=== PATIENT | male | born 1930 | race Caucasian/White ===

== ENCOUNTER → 2016-08-15 | Outpatient (CLI) | payer OTHER, MEDICAID ==
[2015-12-07 05:13] VITALS: BP 145/90
--- NOTE | 2016-08-15 18:22 | RAD ---
HISTORY: Cough Study: Single view of the chest Comparison: December 07, 2015 Findings: The patient is slightly rotated. The cardiac silhouette is unremarkable. A small left pleural effu ana is suspected. The right costophrenic angle is not entirely included. The aorta is partially calcified and tortuous. IMPRESSION: 1. Cardiomegaly with a suspected small left pleural effusion. Reported By:
== END ==
LOC: RAD 16:26
PROVIDERS: ATTEND Internal Medicine
DX: R05 Cough (principal); R07.89 Other chest pain
CPT/HCPCS: 71010

== ENCOUNTER → 2017-02-16 | Outpatient (CLI) | payer OTHER, MEDICAID ==
[2015-12-07 05:13] VITALS: BP 145/90
--- NOTE | 2017-02-16 10:17 | RAD ---
Examination: Chest, PA and lateral views History: Hypoxia, cough, congestion and prostate CA Comparison reference: 08/15/2016 Findings: Continued normal heart size with tortuous aorta and lungs and pleural space is free of acti ve process. Pulmonary volumes are slightly reduced by incomplete inspiration. There is no consolidati on, pneumothorax or pleural fluid. Impression: No active chest disease demonstrated. Reported By:
== END ==
LOC: RAD 09:36
PROVIDERS: ATTEND Internal Medicine
DX: R09.02 Hypoxemia (principal); R05 Cough; R09.89 Other specified symptoms and signs involving the circulatory and respiratory systems
CPT/HCPCS: 71020

== ENCOUNTER → 2017-03-26 | Outpatient (CLI) | payer OTHER, MEDICAID ==
[2015-12-07 05:13] VITALS: BP 145/90
--- NOTE | 2017-03-29 09:07 | US ---
History: Questionable mass to medial right antecubital fossa. Study: Targeted ultrasound of the right upper extremity at patient's area of concern. Comparison: None. Technique: Multiple mcgregor scale and color flow images of the right medial anterior cubital fossa. Findings: Targeted ultrasound of the patient's area of concern demonstrates normal appearing vascular structures. No obvious suspicious solid or cystic mass. The visualized soft tissues appear normal. Impression: Unremarkable exam. Reported By:
== END ==
LOC: RAD 14:04
PROVIDERS: ATTEND Internal Medicine
DX: M79.601 Pain in right arm (principal); R22.31 Localized swelling, mass and lump, right upper limb
CPT/HCPCS: 76881